=== PATIENT | female | born 2000 | race Caucasian/White ===

== ENCOUNTER 2018-11-27 21:49 | Outpatient (CLI) | payer OTHER ==
[2018-11-27 22:44] LABS: MICROSCOPIC INDICATED
[2018-11-27] MEDS ORDERED: RHOGAM FROM BLOOD BANK 1 NOTE EA IM/IV ONE (23:30)
== END 2018-11-27 23:57 | disposition home or self-care (01) ==
LOC: LDOP 21:49
PROVIDERS: ATTEND Obstetrics & Gynecology
DX: O36.8130 Decreased fetal movements, third trimester, not applicable or unspecified (principal); Z3A.32 32 weeks gestation of pregnancy
CPT/HCPCS: 36415; 81001; 86850; 86900; 87086; J2790; 59025; 85461; 99201; G0463

== ENCOUNTER 2019-01-12 07:11 | Inpatient (IN) | payer OTHER ==
[~2019-01-12] VITALS: Ht 160 cm; Wt 77.7 kg
[2019-01-12] MEDS ORDERED: LACTATED RINGERS 1,000 ML IV SCH ×3 (07:39→09:14)
[2019-01-12] MEDS ORDERED: OXYTOCIN 30U/ 0.9% NaCL 500ML 500 ML IV PRN ×2 (07:39)
[2019-01-12] MEDS ORDERED: OXYTOCIN 30U/ 0.9% NaCL 500ML 500 ML IV ONE (07:39)
[2019-01-12] MEDS ORDERED: FENTANYL/BUPIV./NS/PF 250 ML EPIDCONT SCH ×2 (07:39→09:14)
[2019-01-12] MEDS ORDERED: D5%-LACTATED RINGERS 1,000 ML IV SCH (07:51)
[2019-01-12 07:59] LABS: BASOPHILS # (AUTO) 0.01 x10^3/uL (0-0.3); BASOPHILS % (AUTO) 0 % (0-1); EOSINOPHILS # (AUTO) 0.06 x10^3/uL (0-0.8); EOSINOPHILS % (AUTO) 1 % (1-7); LYMPHOCYTES # (AUTO) 1.81 x10^3/uL (1-6.1); LYMPHOCYTES % (AUTO) 15 % (22-44); MD NO; MEAN CORPUSCULAR HEMOGLOBIN 31.3 pg (27.0-34.8); MEAN CORPUSCULAR HGB CONC 33.7 g/dL (32.4-35.8); MEAN CORPUSCULAR VOLUME 92.9 fL (80-100); MEAN PLATELET VOLUME 8.1 fL (7.4-10.4); MONOCYTES # (AUTO) 0.84 x10^3/uL (0-1.4); MONOCYTES % (AUTO) 7 % (2-9); NEUTROPHILS # (AUTO) 9.24 x10^3/uL (1.8-8.0); NEUTROPHILS % (AUTO) 77 % (42-75); PLATELET COUNT 151 x10^3/uL (130-400); RED BLOOD COUNT 4.03 x10^6/uL (3.82-5.3); RED CELL DISTRIBUTION WIDTH 13.1 % (9.6-15.2)
[2019-01-12] MEDS ORDERED: PLEASE ENTER HEIGHT AND WEIGHT MC SCH (08:00)
[2019-01-12] MEDS ORDERED: EPHEDRINE 50 MG/ML, 1ML IVPush PRN ×2 (08:00→09:30)
[2019-01-12] MEDS ORDERED: ONDANSETRON 2MG/ML, 2ML IVPush PRN ×2 (08:00→09:30)
[2019-01-12] MEDS ORDERED: FENTANYL PF 100 MCG/2ML IVPush PRN (08:00)
[2019-01-12] MEDS ORDERED: FENTANYL PF 100 MCG/2ML IV PRN (08:00)
[2019-01-12] MEDS ORDERED: LACTATED RINGERS 1,000 ML IVBOLUS PRN ×2 (08:00→09:30)
[2019-01-12] MEDS ORDERED: LIDOCAINE 1%, 20ML ONE (08:03)
[2019-01-12] MEDS ORDERED: NEWBORN KIT ONE (08:03)
[2019-01-12] MEDS ORDERED: MISOPROSTOL 200 MCG TABLET ONE ×2 (08:04→17:30)
[2019-01-12] MEDS ORDERED: ONDANSETRON 2MG/ML, 2ML ONE ×2 (08:04→18:51)
[2019-01-12] MEDS ORDERED: OXYTOCIN 30U/ 0.9% NaCL 500ML 1,000 ML ONE (08:04)
[2019-01-12] MEDS ORDERED: FENTANYL PF 100 MCG/2ML ONE (08:04)
[2019-01-12] MEDS ORDERED: FENTANYL PF 500 MCG, BUPIVACAINE/PF 0.5%, 30ML 62.5 ML in SODIUM CHLORIDE 0.9% 177.5 ML EPIDCONT SCH (08:30)
[2019-01-12] MEDS ORDERED: LIDOCAINE/PF 1.5%-EPI 1:200K, 30ML ONE (08:34)
[2019-01-12] MEDS ORDERED: BUPIVACAINE 0.25% ONE (08:34)
[2019-01-12] MEDS ORDERED: NALOXONE 0.4 MG/ML, 1ML IVPush PRN (09:30)
[2019-01-12] MEDS ORDERED: DIPHENHYDRAMINE 50 MG/ML, 1ML IVPush PRN (09:30)
[2019-01-12] MEDS: VALACYCLOVIR 500MG TABLET PO SCH (10:53)
[2019-01-12 17:05] VITALS: BP 123/85
[2019-01-12 17:30] VITALS: BP 127/113
[2019-01-12 17:45] VITALS: BP 127/78
[2019-01-12] MEDS: OXYTOCIN 30U/ 0.9% NaCL 500ML 500 ML IV SCH (17:45)
[2019-01-12] MEDS ORDERED: METOCLOPRAMIDE 5 MG/ML, 2ML IV PRN (18:00)
[2019-01-12] MEDS ORDERED: CARBOPROST TROMETHAMINE 250 MCG/ML, 1ML IM PRN (18:00)
[2019-01-12] MEDS ORDERED: ACETAMINOPHEN 325 MG TABLET PO PRN (18:00)
[2019-01-12] MEDS ORDERED: BISACODYL 10 MG SUPP PR PRN (18:00)
[2019-01-12] MEDS ORDERED: ONDANSETRON 2MG/ML, 2ML IV PRN (18:00)
[2019-01-12] MEDS ORDERED: DOCUSATE 100 MG CAPSULE PO PRN (18:00)
[2019-01-12] MEDS ORDERED: GLYCERIN ADULT SUPP PR PRN (18:00)
[2019-01-12] MEDS ORDERED: TRANEXAMIC ACID 1,000 MG in SODIUM CHLORIDE 0.9% 100 ML IV ONE (18:00)
[2019-01-12] MEDS ORDERED: RHOGAM FROM BLOOD BANK 1 NOTE EA IM/IV ONE (18:00)
[2019-01-12] MEDS ORDERED: METHYLERGONOVINE 0.2 MG/ML IM PRN (18:00)
[2019-01-12] MEDS ORDERED: MISOPROSTOL 200 MCG TABLET PR PRN ×2 (18:00→19:30)
[2019-01-12] MEDS ORDERED: OXYcodone/APAP 5/325MG TABLET PO PRN ×2 (18:00)
[2019-01-12] MEDS ORDERED: MORPHINE SULFATE 4 MG/ML, 1ML ONE (18:03)
[2019-01-12] MEDS ORDERED: TRANEXAMIC ACID 100 MG/ML, 10ML ONE (18:14)
[2019-01-12 18:15] VITALS: BP 157/104
[2019-01-12 18:20] VITALS: BP 148/94
[2019-01-12] MEDS ORDERED: MORPHINE SULFATE 4 MG/ML, 1ML IVPush ONE (18:30)
[2019-01-12 19:12] LABS: BASOPHILS # (AUTO) 0.01 x10^3/uL (0-0.3); BASOPHILS % (AUTO) 0 % (0-1); EOSINOPHILS # (AUTO) 0.24 x10^3/uL (0-0.8); EOSINOPHILS % (AUTO) 2 % (1-7); LYMPHOCYTES # (AUTO) 1.22 x10^3/uL (1-6.1); LYMPHOCYTES % (AUTO) 8 % (22-44); MD NO; MEAN CORPUSCULAR HEMOGLOBIN 32.2 pg (27.0-34.8); MEAN CORPUSCULAR HGB CONC 33.9 g/dL (32.4-35.8); MEAN CORPUSCULAR VOLUME 94.8 fL (80-100); MEAN PLATELET VOLUME 8.8 fL (7.4-10.4); MONOCYTES # (AUTO) 1.03 x10^3/uL (0-1.4); MONOCYTES % (AUTO) 7 % (2-9); NEUTROPHILS # (AUTO) 12.33 x10^3/uL (1.8-8.0); NEUTROPHILS % (AUTO) 83 % (42-75); PLATELET COUNT 158 x10^3/uL (130-400); RED BLOOD COUNT 4.11 x10^6/uL (3.82-5.3); RED CELL DISTRIBUTION WIDTH 13.1 % (9.6-15.2)
[2019-01-12 19:29] VITALS: BP 127/78
[2019-01-12] MEDS ORDERED: IBUPROFEN 600 MG TABLET ONE (20:39)
[2019-01-12] MEDS: IBUPROFEN 600 MG TABLET PO PRN (20:41)
[2019-01-12 23:26] LABS: MEAN CORPUSCULAR HEMOGLOBIN 32.1 pg (27.0-34.8); MEAN CORPUSCULAR HGB CONC 34.1 g/dL (32.4-35.8); MEAN PLATELET VOLUME 9.3 fL (7.4-10.4); PLATELET COUNT 154 x10^3/uL (130-400); RED BLOOD COUNT 3.82 x10^6/uL (3.82-5.3); RED CELL DISTRIBUTION WIDTH 12.9 % (9.6-15.2)
[2019-01-12 23:47] LABS: BASOPHILS % (AUTO) 0 % (0-1); EOSINOPHILS % (AUTO) 0 % (1-7); LYMPHOCYTES # (AUTO) 1.05 x10^3/uL (1-6.1); LYMPHOCYTES % (AUTO) 7 % (22-44); MD SCAN; MONOCYTES # (AUTO) 1.08 x10^3/uL (0-1.4); MONOCYTES % (AUTO) 7 % (2-9); NEUTROPHILS # (AUTO) 13.76 x10^3/uL (1.8-8.0); NEUTROPHILS % (AUTO) 87 % (42-75)
[2019-01-13] VITALS: BP 124/79
[2019-01-13] MEDS: OXYTOCIN 30U/ 0.9% NaCL 500ML 500 ML IV SCH ×3 (03:45→23:45)
[2019-01-13 04:10] VITALS: BP 120/81
[2019-01-13] MEDS: IBUPROFEN 600 MG TABLET PO PRN (04:38)
[2019-01-13 05:43] LABS: BASOPHILS # (AUTO) 0.02 x10^3/uL (0-0.3); BASOPHILS % (AUTO) 0 % (0-1); EOSINOPHILS # (AUTO) 0.04 x10^3/uL (0-0.8); EOSINOPHILS % (AUTO) 0 % (1-7); LYMPHOCYTES # (AUTO) 1.49 x10^3/uL (1-6.1); LYMPHOCYTES % (AUTO) 10 % (22-44); MD NO; MEAN CORPUSCULAR HEMOGLOBIN 31.4 pg (27.0-34.8); MEAN CORPUSCULAR HGB CONC 33.2 g/dL (32.4-35.8); MEAN CORPUSCULAR VOLUME 94.7 fL (80-100); MONOCYTES # (AUTO) 1.02 x10^3/uL (0-1.4); MONOCYTES % (AUTO) 7 % (2-9); NEUTROPHILS # (AUTO) 12.76 x10^3/uL (1.8-8.0); NEUTROPHILS % (AUTO) 83 % (42-75); PLATELET COUNT 171 x10^3/uL (130-400); RED BLOOD COUNT 4.01 x10^6/uL (3.82-5.3); RED CELL DISTRIBUTION WIDTH 13.3 % (9.6-15.2)
[2019-01-13 07:45] VITALS: BP 128/88
[2019-01-13] MEDS: VALACYCLOVIR 500MG TABLET PO SCH ×2 (09:05→17:00)
[2019-01-13] MEDS: PRENATAL VIT/IRON/FA 1 EACH TABLET PO SCH (09:05)
[2019-01-13 12:23] VITALS: BP 105/67
[2019-01-13 19:30] VITALS: BP 103/69
[2019-01-14] MEDS: IBUPROFEN 600 MG TABLET PO PRN (01:47)
[2019-01-14 08:56] VITALS: BP 112/77
[2019-01-14] MEDS: VALACYCLOVIR 500MG TABLET PO SCH (08:56)
[2019-01-14] MEDS: PRENATAL VIT/IRON/FA 1 EACH TABLET PO SCH (08:56)
[2019-01-14] MEDS: OXYTOCIN 30U/ 0.9% NaCL 500ML 500 ML IV SCH (09:45)
== END 2019-01-14 11:05 | disposition home or self-care (01) | DRG 807 ==
LOC: LDOP 07:11 → LDIP 07:39 → 2NW 16:59 → 2NE 18:12 → 2NW 23:27
PROVIDERS: ADMIT Obstetrics & Gynecology; ATTEND Obstetrics & Gynecology
PROC: 10E0XZZ Delivery of Products of Conception, External Approach (ICD-10-PCS; principal; 2019-01-12)
PROC: 3E0R3BZ Introduction of Anesthetic Agent into Spinal Canal, Percutaneous Approach (ICD-10-PCS; 2019-01-12)
PROC: 00HU33Z Insertion of Infusion Device into Spinal Canal, Percutaneous Approach (ICD-10-PCS; 2019-01-12)
PROC: 10907ZC Drainage of Amniotic Fluid, Therapeutic from Products of Conception, Via Natural or Artificial Opening (ICD-10-PCS; 2019-01-12)
DX: O99.52 Diseases of the respiratory system complicating childbirth (principal); Z37.0 Single live birth; J45.909 Unspecified asthma, uncomplicated; Z3A.39 39 weeks gestation of pregnancy; O70.0 First degree perineal laceration during delivery; Z91.048 Other nonmedicinal substance allergy status
CPT/HCPCS: 36415; J3490; S0020; 85025; 86850; 86870; 86900; 86922; 86923; G0378; J2405; J3010; J2210; J2270; J7050; J7120

== ENCOUNTER 2019-01-18 13:23 | Emergency (ER) | payer OTHER ==
[~2019-01-18] VITALS: Ht 160 cm; Wt 70.5 kg
[2019-01-18 14:06] VITALS: BP 139/93
--- NOTE | 2019-01-18 14:11 | NUR ---
Provider at bedside. Labs drawn and sent. Pt denies any needs or concerns at this time.
[2019-01-18 14:22] LABS: BASOPHILS % (AUTO) 0 % (0-1); EOSINOPHILS # (AUTO) 0.19 x10^3/uL (0-0.8); EOSINOPHILS % (AUTO) 2 % (1-7); LYMPHOCYTES # (AUTO) 1.72 x10^3/uL (1-6.1); LYMPHOCYTES % (AUTO) 19 % (22-44); MD NO; MEAN CORPUSCULAR HEMOGLOBIN 32.3 pg (27.0-34.8); MEAN CORPUSCULAR HGB CONC 33.5 g/dL (32.4-35.8); MEAN CORPUSCULAR VOLUME 96.3 fL (80-100); MEAN PLATELET VOLUME 7.9 fL (7.4-10.4); MONOCYTES # (AUTO) 0.51 x10^3/uL (0-1.4); MONOCYTES % (AUTO) 6 % (2-9); NEUTROPHILS # (AUTO) 6.51 x10^3/uL (1.8-8.0); NEUTROPHILS % (AUTO) 73 % (42-75); PLATELET COUNT 323 x10^3/uL (130-400); RED CELL DISTRIBUTION WIDTH 13.1 % (9.6-15.2)
[2019-01-18 14:54] LABS: ALBUMIN 2.9 g/dL (3.4-5.0); ANION GAP 10 mmol/L (5-15); CALCIUM 9.1 mg/dL (8.5-10.1); CHLORIDE 110 mmol/L (98-107); CREATININE 0.96 mg/dL (0.55-1.02)
--- NOTE | 2019-01-18 15:00 | NUR ---
REPORT RECEIVED, CARE ASSUMED. PT SITTING UP ON GURNEY, NO ACUTE DISTRESS NOTED. PT TAKING PO FLUIDS WITHOUT DIFFICULTY. PT STATES, "I THINK I HAVE URINE IN MY BLADDER NOW" PT AWARE OF NEED FOR STRAIGHT CATH.
--- NOTE | 2019-01-18 15:33 | NUR ---
PT DOC MC WELL. CLEAR PALE URINE. U/S AT BEDSIDE.
[2019-01-18 15:57] LABS: CULTURE INDICATED? YES; MICROSCOPIC INDICATED
--- NOTE | 2019-01-18 16:54 | NUR ---
PT SITTING ON END OF GURNEY, DRESSED, READY TO GO. NO IV TO DC. REVIEWED DC INSTRUCTIONS WITH PT. UNDERSTANDING VERBALIZED. PT LEFT AMB, GAIT STEADY.
== END 2019-01-18 16:57 | disposition home or self-care (01) ==
LOC: ED 15:39
DX: O72.1 Other immediate postpartum hemorrhage (principal)
CPT/HCPCS: 36415; 76856; 80048; 81001; 82040; 84703; 85025; 87086; 99284